=== PATIENT | female | born 1945 | race Caucasian/White ===

== ENCOUNTER 2018-11-07 07:33 | Day surgery (SDC) | payer MEDICARE, MEDICAID ==
[~2018-11-07] VITALS: Ht 162.6 cm; Wt 95.5 kg
[2018-11-07] MEDS ORDERED: ceFAZolin inj. 2,000 MG in normal saline soln 50 ML IV ONE (07:55)
[2018-11-07] MEDS ORDERED: normal saline 1000ml 1,000 ML IV SCH (07:55)
[2018-11-07] MEDS ORDERED: AMLO5TAB PO (08:27)
[2018-11-07] MEDS ORDERED: LAMO25TA5 PO (08:27)
[2018-11-07] MEDS ORDERED: FOLI1TAB16 PO (08:27)
[2018-11-07] MEDS ORDERED: PANT-47 PO (08:27)
[2018-11-07] MEDS ORDERED: ATOR40TA PO (08:27)
[2018-11-07] MEDS ORDERED: SEVE800T8 PO (08:27)
[2018-11-07] MEDS ORDERED: FURO40TA4 PO (08:27)
[2018-11-07] MEDS ORDERED: DIVA-76 PO (08:27)
[2018-11-07] MEDS ORDERED: METO25TA6 PO (08:27)
[2018-11-07] MEDS ORDERED: METO5TAB98 PO (08:27)
[2018-11-07] MEDS ORDERED: FOLI0.8T7 PO (08:27)
[2018-11-07 08:48] VITALS: BP 147/62
[2018-11-07 08:56] LABS: BASOPHILS # (AUTO) 0.1 X10'3 (0-0.2); BASOPHILS % (AUTO) 1.2 % (0-1); EOSINOPHILS # (AUTO) 0.2 X10'3 (0-0.9); EOSINOPHILS % (AUTO) 3.2 % (0-6); HEMATOCRIT 38.9 % (35.0-45.0); HEMOGLOBIN 12.9 g/dl (12.0-16.0); LYMPHOCYTES # (AUTO) 1.6 X10'3 (1.1-4.8); LYMPHOCYTES % (AUTO) 33.5 % (21-51); MEAN CORPUSCULAR HEMOGLOBIN 32.5 PG (27.0-31.0); MEAN CORPUSCULAR HGB CONC 33.1 g/dL (33.0-36.5); MEAN PLATELET VOLUME 8.7 FL (7.4-10.4); MONOCYTES # (AUTO) 0.5 X10'3 (0-0.9); MONOCYTES % (AUTO) 10.8 % (2-12); NEUTROPHILS # (AUTO) 2.4 X10'3 (1.8-7.7); NEUTROPHILS % (AUTO) 51.3 % (42-75); PLATELET COUNT 223 X10'3 (140-440); RED BLOOD COUNT 3.97 X10'6 (4.20-5.60); RED CELL DISTRIBUTION WIDTH 14.3 % (11.5-14.5); WHITE BLOOD COUNT 4.8 X10'3 (4.5-11.0)
[2018-11-07 09:03] LABS: ANION GAP 10 (8-16); BLOOD UREA NITROGEN 29 MG/DL (7-18); BUN/CREATININE RATIO 12.4 (6.6-38.0); CALCIUM 9.2 MG/DL (8.5-10.1); CHLORIDE 103 MMOL/L (99-107); CREATININE 2.34 MG/DL (0.40-0.90); GLUCOSE 99 MG/DL (70-104); POTASSIUM 3.3 MMOL/L (3.5-5.1); SODIUM 143 MMOL/L (135-145); TOTAL CARBON DIOXIDE 29.9 MMOL/L (24-32); eGFR 20 ML/MIN
[2018-11-07] MEDS ORDERED: midazolam 2 mg/2 ml injection ONE ×2 (09:51→10:26)
[2018-11-07] MEDS ORDERED: fentaNYL/PF 50MCG/1 ML 2ML syringe ONE ×3 (09:51→10:40)
[2018-11-07] MEDS ORDERED: heparin 1,000unit/ml 10ml vial 10 ML ONE (09:51)
[2018-11-07] MEDS ORDERED: LIDOcaine 1%/PF 5ML 10 MG/ML VIAL ONE ×2 (09:51→10:43)
[2018-11-07 11:30] VITALS: BP 150/90
[2018-11-07 11:45] VITALS: BP 166/63
[2018-11-07 12:00] VITALS: BP 149/65
[2018-11-07 12:15] VITALS: BP 141/84
[2018-11-07 12:30] VITALS: BP 142/61
== END 2018-11-07 12:50 | disposition home or self-care (01) ==
LOC: SSTAY O 07:33
PROVIDERS: ATTEND Radiology Vascular & Interventional Radiology
DX: T82.49XA Other complication of vascular dialysis catheter, initial encounter (principal); I12.9 Hypertensive chronic kidney disease with stage 1 through stage 4 chronic kidney disease, or unspecified chronic kidney disease; N18.9 Chronic kidney disease, unspecified; E78.5 Hyperlipidemia, unspecified; Y83.8 Other surgical procedures as the cause of abnormal reaction of the patient, or of later complication, without mention of misadventure at the time of the procedure; Z98.51 Tubal ligation status; Z90.49 Acquired absence of other specified parts of digestive tract; Z88.8 Allergy status to other drugs, medicaments and biological substances
CPT/HCPCS: 36415; 36558; 76937; 77001; 80048; 85025; 99152; 99153; C1750; J0690; J1644; J2001; J2250; J3010; J7030; A9270; C1894

== ENCOUNTER 2024-01-13 15:31 | Inpatient (IN) | payer MEDICARE, MEDICAID ==
[~2024-01-13] VITALS: Ht 162.6 cm; Wt 94.9 kg
[~2024-01-13 15:31] MED LIST: ACET500P24 PO; DIPH25CA83 PO; LOSA50TA64 PO; METO5TAB98 PO; OMEP20CA16 PO
[2024-01-13 16:48] LABS: BASOPHILS # (AUTO) 0.1 X10'3 (0-0.2); EOSINOPHILS % (AUTO) 0 % (0-6); LYMPHOCYTES # (AUTO) 0.3 X10'3 (1.1-4.8); MONOCYTES % (AUTO) 0.3 % (2-12)
[2024-01-13 16:50] LABS: BASOPHILS % (AUTO) 0.4 % (0-1); HEMATOCRIT 32.9 % (35.0-45.0); HEMOGLOBIN 10.3 g/dl (12.0-16.0); LYMPHOCYTES % (AUTO) 2.2 % (21-51); MEAN CORPUSCULAR HGB CONC 31.3 g/dL (33.0-36.5); MEAN CORPUSCULAR VOLUME 105.5 FL (78-98); MEAN PLATELET VOLUME 8.3 FL (7.4-10.4); NEUTROPHILS % (AUTO) 97.1 % (42-75); PLATELET COUNT 925 X10'3 (140-440); RED BLOOD COUNT 3.12 X10'6 (4.20-5.60); RED CELL DISTRIBUTION WIDTH 14.9 % (11.5-14.5); WHITE BLOOD COUNT 13.4 X10'3 (4.5-11.0)
[2024-01-13 16:56] LABS: ALANINE AMINOTRANSFERASE 22 U/L (12-78); ALBUMIN 2.1 G/DL (3.4-5.0); ALBUMIN/GLOBULIN RATIO 0.6 (1.1-1.5); ALKALINE PHOSPHATASE 132 IU/L (46-116); ANION GAP 10 (8-16); ASPARTATE AMINO TRANSFERASE 26 U/L (10-37); BILIRUBIN,TOTAL 0.7 MG/DL (0.1-1.0); BLOOD UREA NITROGEN 26 MG/DL (7-18); BUN/CREATININE RATIO 12.1 (10.0-20.0); CALCIUM 7.5 MG/DL (8.5-10.1); CHLORIDE 104 MMOL/L (99-107); CREATININE 2.14 MG/DL (0.40-0.90); GLUCOSE 141 MG/DL (70-104); POTASSIUM 3.1 MMOL/L (3.5-5.1); SODIUM 140 MMOL/L (135-145); TOTAL CARBON DIOXIDE 26.3 MMOL/L (24-32); TOTAL PROTEIN 5.6 G/DL (6.4-8.2); eCRCL 19 ML/MIN; eGFR 22 ML/MIN
[2024-01-13 17:21] LABS: PLATELET ESTIMATE INCREASED; TOTAL CELLS COUNTED 100; TOXIC GRANULATION 2+; TOXIC VACUOLATION FEW
[2024-01-13 17:22] LABS: STOMATOCYTES 1+
[2024-01-13] MEDS: normal saline 1000ml 1,000 ML IV ONE (18:17)
[2024-01-13 18:54] LABS: AMYLASE 8 U/L (25-115); LIPASE 8 U/L (16-77)
[2024-01-13] MEDS: piperacillin/tazo 3.375gm/50ml 50 ML IV STA (18:56)
[2024-01-13] MEDS: ringers solution, lactated 1000ml IV soln IV ONE (19:01)
[2024-01-13] MEDS: ringers solution, lacted 1,000 ML IV ONE (19:02)
[2024-01-13 19:49] LABS: BILIRUBIN,URINE MODERATE (Neg); CLARITY,URINE CLOUDY (Clear); COLOR,URINE AMBER (Yellow); GLUCOSE, URINE NEGATIVE (Neg); KETONES,URINE TRACE mg/dl (Neg); LEUKOCYTE ESTERASE ,URINE MODERATE (Neg); NITRITES, URINE NEGATIVE (Neg); OCCULT BLOOD,URINE SMALL (Neg); PH,URINE 5.5 (4.8-8.0); PROTEIN,URINE 30 mg/dl (Neg)
[2024-01-13 19:52] LABS: UA COLLECTION TYPE FOLEY CATH
[2024-01-13 19:59] LABS: BACTERIA,URINE 2+ /HPF (Neg); WBC,URINE TNTC /HPF (0-4)
[2024-01-13 20:03] LABS: CAL OXALATE CRYSTALS FEW /HPF (NEGATIVE); SQUAMOUS EPITHELIAL CELL,UR MODERATE /LPF (FEW)
[2024-01-13 20:05] LABS: AMORPHOUS URATES 1+
[2024-01-13] MEDS: acetaminophen 1,000mg/100ml IV 100 ML IV ONE (20:08)
[2024-01-13] MEDS ORDERED: ondansetron/PF 4mg/2ml inj IV PRN (20:50)
[2024-01-13] MEDS ORDERED: magnesium hydroxide 30ml (MOM) UD suspension PO PRN (20:50)
[2024-01-13] MEDS ORDERED: HYDROcodone/acetaminophen 5mg/325mg tablet PO PRN (20:50)
[2024-01-13] MEDS ORDERED: potassium Cl 20 mEq SR tablet PO PRN (20:50)
[2024-01-13] MEDS ORDERED: acetaminophen 325mg tablet PO PRN (20:50)
[2024-01-13] MEDS ORDERED: morphine 2 MG/ML inj. syringe IV PRN (20:50)
[2024-01-13] MEDS ORDERED: magnesium 4gm in 100ml NS 100 ML IV PRN (20:50)
[2024-01-13] MEDS ORDERED: potassium Cl 40MEQ/1/2NS 520ml 520 ML IV PRN (20:50)
[2024-01-13] MEDS ORDERED: magnesium 2GM in 50ml NS 50 ML IV PRN (20:50)
[2024-01-13] MEDS: diatr meglu/diatrizoate 30ml oral sol.-(3 dose) bottle PO SCH (21:02)
[2024-01-14] VITALS (8 sets, daily range): BP systolic 86–111; BP diastolic 34–47; PULSE 81–97; RESP 12–26; TEMP 96–98.4; O2SAT 95–100
[2024-01-14] MEDS ORDERED: piperacillin/tazo 3.375gm/50ml 50 ML IV SCH
[2024-01-14] MEDS: loperamide 2mg capsule PO ONE (01:22)
[2024-01-14] MEDS: normal saline 1000ml 1,000 ML IV SCH (01:24)
[2024-01-14] MEDS: morphine 2 MG/ML inj. syringe IV PRN (01:36)
[2024-01-14] MEDS: piperacillin/tazo 3.375gm/50ml 50 ML IV SCH (03:25)
[2024-01-14] MEDS: normal saline 1000ml 1,000 ML IV ONE (03:57)
[2024-01-14 06:32] LABS: BASOPHILS # (AUTO) 0.1 X10'3 (0-0.2); BASOPHILS % (AUTO) 0.6 % (0-1); HEMOGLOBIN 10.9 g/dl (12.0-16.0)
[2024-01-14 06:33] LABS: APTT 23 SECONDS (22-32); INR 1.1 INR
[2024-01-14 06:36] LABS: EOSINOPHILS % (AUTO) 0.2 % (0-6); HEMATOCRIT 34.9 % (35.0-45.0); LYMPHOCYTES # (AUTO) 0.8 X10'3 (1.1-4.8); LYMPHOCYTES % (AUTO) 7.9 % (21-51); MEAN CORPUSCULAR HEMOGLOBIN 34.3 PG (27.0-31.0); MEAN CORPUSCULAR HGB CONC 31.1 g/dL (33.0-36.5); MEAN CORPUSCULAR VOLUME 110.3 FL (78-98); MEAN PLATELET VOLUME 8.3 FL (7.4-10.4); MONOCYTES % (AUTO) 0.4 % (2-12); NEUTROPHILS # (AUTO) 9.7 X10'3 (1.8-7.7); NEUTROPHILS % (AUTO) 90.9 % (42-75); PLATELET COUNT 791 X10'3 (140-440); RED BLOOD COUNT 3.17 X10'6 (4.20-5.60); RED CELL DISTRIBUTION WIDTH 15.5 % (11.5-14.5); WHITE BLOOD COUNT 10.7 X10'3 (4.5-11.0)
[2024-01-14 06:57] LABS: C DIFF ANTIGEN POSITIVE (NEGATIVE); C DIFF SPECIMEN=DIARRHEA? ACCEPTABLE; C DIFFICILE TOXINS A&B POSITIVE (Neg)
[2024-01-14 06:59] LABS: ALANINE AMINOTRANSFERASE 26 U/L (12-78); ALBUMIN 1.9 G/DL (3.4-5.0); ALBUMIN/GLOBULIN RATIO 0.5 (1.1-1.5); ALKALINE PHOSPHATASE 126 IU/L (46-116); ANION GAP 13 (8-16); ASPARTATE AMINO TRANSFERASE 36 U/L (10-37); BILIRUBIN,TOTAL 0.7 MG/DL (0.1-1.0); BLOOD UREA NITROGEN 27 MG/DL (7-18); BUN/CREATININE RATIO 11.8 (10.0-20.0); CALCIUM 7.4 MG/DL (8.5-10.1); CHLORIDE 105 MMOL/L (99-107); CREATININE 2.28 MG/DL (0.40-0.90); FERRITIN 172 NG/ML (8-252); GLUCOSE 104 MG/DL (70-104); MAGNESIUM 1.3 MG/DL (1.5-2.4); PHOSPHORUS 3.1 MG/DL (2.3-4.5); POTASSIUM 3.4 MMOL/L (3.5-5.1); SODIUM 141 MMOL/L (135-145); TOTAL CARBON DIOXIDE 23.1 MMOL/L (24-32); TOTAL PROTEIN 5.4 G/DL (6.4-8.2); eCRCL 18 ML/MIN; eGFR 21 ML/MIN
[2024-01-14 07:23] LABS: PLATELET ESTIMATE INCREASED; TOTAL CELLS COUNTED 100
[2024-01-14 07:24] LABS: GIANT PLATELET FEW; LARGE PLATELETS FEW
[2024-01-14 07:27] LABS: TOXIC GRANULATION 2+
[2024-01-14 07:28] LABS: POLYCHROMASIA FEW; STOMATOCYTES FEW
[2024-01-14 07:31] LABS: SCHISTOCYTES FEW
[2024-01-14 07:56] LABS: BANDS% (MANUAL) 2 % (0-10); LYMPHOCYTES % (MANUAL) 8 % (21-51); NEUTROPHILS % (MANUAL) 90 % (42-75)
[2024-01-14] MEDS ORDERED: loperamide 2mg capsule PO PRN (08:00)
[2024-01-14] MEDS: losartan 50mg tablet PO SCH (08:00)
[2024-01-14] MEDS: K and/or MAG REPLACEMENT MC SCH (08:00)
[2024-01-14] MEDS ORDERED: docusate sod 100mg capsule PO SCH (08:00)
[2024-01-14 08:48] LABS: % IRON SATURATION 6 % (11-46); IRON 8 UG/DL (49-151); TOTAL IRON BINDING CAPACITY 128 UG/DL (259-388)
[2024-01-14] MEDS: potassium Cl 20 mEq SR tablet PO PRN (09:09)
[2024-01-14] MEDS: HYDROcodone/acetaminophen 10/325mg tab PO PRN (09:09)
[2024-01-14] MEDS: magnesium Cl slow-release 64mg tablet PO PRN (09:09)
[2024-01-14] MEDS: VANCOMYCIN 125 MG/5 ML oral SOLN.RECON 5mL UD syringe (FIRVANQ) PO SCH (09:10)
[2024-01-14] MEDS: heparin, porcine 5000 units/ml vial SQ SCH (09:10)
[2024-01-14] MEDS ORDERED: normal saline 500ml IV soln 500 ML IV SCH (11:45)
[2024-01-14] MEDS: normal saline 500ml IV soln 500 ML IV ONE (12:11)
[2024-01-14] MEDS: MULTIVIT-MIN/FERROUS GLUCONATE 9 MG/15 ML LIQUID PO SCH (17:45)
[2024-01-15 02:00] VITALS: BP 98/34; PULSE 85; RESP 14; TEMP 98.6; O2SAT 96
[2024-01-15 07:00] VITALS: BP 95/48; PULSE 76; RESP 17; TEMP 96; O2SAT 94
[2024-01-15 10:50] LABS: EOSINOPHILS # (AUTO) 0.1 X10'3 (0-0.9); LYMPHOCYTES # (AUTO) 0.4 X10'3 (1.1-4.8); MEAN PLATELET VOLUME 8.7 FL (7.4-10.4); MONOCYTES % (AUTO) 0.6 % (2-12); RED CELL DISTRIBUTION WIDTH 15.6 % (11.5-14.5); WHITE BLOOD COUNT 3.5 X10'3 (4.5-11.0)
[2024-01-15 10:53] LABS: BASOPHILS % (AUTO) 1.1 % (0-1); EOSINOPHILS % (AUTO) 2.8 % (0-6); HEMATOCRIT 29.4 % (35.0-45.0); HEMOGLOBIN 9.2 g/dl (12.0-16.0); LYMPHOCYTES % (AUTO) 12.1 % (21-51); MEAN CORPUSCULAR HEMOGLOBIN 33.4 PG (27.0-31.0); MEAN CORPUSCULAR HGB CONC 31.1 g/dL (33.0-36.5); MEAN CORPUSCULAR VOLUME 107.4 FL (78-98); NEUTROPHILS % (AUTO) 83.4 % (42-75); PLATELET COUNT 903 X10'3 (140-440); RED BLOOD COUNT 2.74 X10'6 (4.20-5.60)
[2024-01-15 11:13] LABS: ALANINE AMINOTRANSFERASE 23 U/L (12-78); ALBUMIN 1.5 G/DL (3.4-5.0); ALBUMIN/GLOBULIN RATIO 0.5 (1.1-1.5); ALKALINE PHOSPHATASE 134 IU/L (46-116); ANION GAP 10 (8-16); ASPARTATE AMINO TRANSFERASE 26 U/L (10-37); BILIRUBIN,TOTAL 0.4 MG/DL (0.1-1.0); BLOOD UREA NITROGEN 32 MG/DL (7-18); BUN/CREATININE RATIO 15.8 (10.0-20.0); CALCIUM 7.2 MG/DL (8.5-10.1); CHLORIDE 107 MMOL/L (99-107); CREATININE 2.03 MG/DL (0.40-0.90); GLUCOSE 95 MG/DL (70-104); MAGNESIUM 1.6 MG/DL (1.5-2.4); PHOSPHORUS 3.3 MG/DL (2.3-4.5); POTASSIUM 3.9 MMOL/L (3.5-5.1); SODIUM 138 MMOL/L (135-145); TOTAL CARBON DIOXIDE 21.1 MMOL/L (24-32); TOTAL PROTEIN 4.8 G/DL (6.4-8.2); eCRCL 20 ML/MIN; eGFR 24 ML/MIN
[2024-01-15 11:31] LABS: APTT 34 SECONDS (22-32); INR 1.2 INR; PROTHROMBIN TIME 12.2 SECONDS (9.0-12.0)
[2024-01-15 12:00] VITALS: BP 104/52; PULSE 75; RESP 16; TEMP 98.2; O2SAT 92
[2024-01-15] MEDS: simethicone 80mg chew tab PO PRN (14:24)
[2024-01-15 18:00] VITALS: BP 106/44; PULSE 97; RESP 17; TEMP 97; O2SAT 99
[2024-01-15 22:00] VITALS: BP 110/53; PULSE 96; RESP 22; TEMP 97.2; O2SAT 94
[2024-01-16 02:00] VITALS: BP 96/50; PULSE 72; RESP 16; TEMP 97.2; O2SAT 96
[2024-01-16 04:13] LABS: EOSINOPHILS # (AUTO) 0.1 X10'3 (0-0.9); LYMPHOCYTES # (AUTO) 0.4 X10'3 (1.1-4.8); MEAN PLATELET VOLUME 8.5 FL (7.4-10.4); MONOCYTES % (AUTO) 0.5 % (2-12); NEUTROPHILS # (AUTO) 2.3 X10'3 (1.8-7.7); WHITE BLOOD COUNT 2.9 X10'3 (4.5-11.0)
[2024-01-16 04:14] LABS: BASOPHILS % (AUTO) 0.7 % (0-1); EOSINOPHILS % (AUTO) 4.3 % (0-6); HEMATOCRIT 28.7 % (35.0-45.0); LYMPHOCYTES % (AUTO) 15.2 % (21-51); MEAN CORPUSCULAR HEMOGLOBIN 33.2 PG (27.0-31.0); MEAN CORPUSCULAR HGB CONC 31.2 g/dL (33.0-36.5); MEAN CORPUSCULAR VOLUME 106.6 FL (78-98); NEUTROPHILS % (AUTO) 79.3 % (42-75); RED CELL DISTRIBUTION WIDTH 15.7 % (11.5-14.5)
[2024-01-16 04:19] LABS: PLATELET COUNT 1048 X10'3 (140-440)
[2024-01-16 04:21] LABS: APTT 33 SECONDS (22-32); INR 1.1 INR; PROTHROMBIN TIME 11.9 SECONDS (9.0-12.0)
[2024-01-16 04:30] LABS: ALANINE AMINOTRANSFERASE 23 U/L (12-78); ALBUMIN 1.5 G/DL (3.4-5.0); ALBUMIN/GLOBULIN RATIO 0.5 (1.1-1.5); ALKALINE PHOSPHATASE 154 IU/L (46-116); ANION GAP 11 (8-16); ASPARTATE AMINO TRANSFERASE 24 U/L (10-37); BILIRUBIN,TOTAL 0.2 MG/DL (0.1-1.0); BLOOD UREA NITROGEN 31 MG/DL (7-18); BUN/CREATININE RATIO 18.9 (10.0-20.0); CALCIUM 7.7 MG/DL (8.5-10.1); CHLORIDE 108 MMOL/L (99-107); CREATININE 1.64 MG/DL (0.40-0.90); GLUCOSE 92 MG/DL (70-104); MAGNESIUM 1.4 MG/DL (1.5-2.4); PHOSPHORUS 3.4 MG/DL (2.3-4.5); POTASSIUM 3.7 MMOL/L (3.5-5.1); SODIUM 137 MMOL/L (135-145); TOTAL CARBON DIOXIDE 18.4 MMOL/L (24-32); TOTAL PROTEIN 4.7 G/DL (6.4-8.2); eCRCL 25 ML/MIN; eGFR 30 ML/MIN
[2024-01-16 04:59] LABS: GIANT PLATELET FEW; LARGE PLATELETS FEW; PLATELET ESTIMATE INCREASED; TOTAL CELLS COUNTED 100; TOXIC GRANULATION 1+
[2024-01-16 05:00] LABS: ANISOCYTOSIS FEW; TOXIC VACUOLATION FEW
[2024-01-16 06:00] VITALS: BP 106/48; PULSE 77; RESP 2; TEMP 97.2; O2SAT 95
[2024-01-16 11:00] VITALS: BP 98/47; PULSE 80; RESP 17; TEMP 97.8; O2SAT 95
[2024-01-16] MEDS: lactose-reduced food (Ensure Enlive) - 237ml bottle PO SCH (13:12)
[2024-01-16 15:00] VITALS: BP 126/49; PULSE 90; RESP 18; TEMP 98.4; O2SAT 95
[2024-01-16 18:00] VITALS: BP 149/63; PULSE 78; RESP 18; TEMP 97.8; O2SAT 98
[2024-01-16] MEDS: mag hydrox/Alum hydrox/simeth 30ml oral suspension PO PRN (19:22)
[2024-01-16 22:00] VITALS: BP 115/46; PULSE 85; RESP 16; TEMP 98; O2SAT 96
[2024-01-17 02:00] VITALS: BP 114/45; PULSE 75; RESP 15; TEMP 97.4; O2SAT 96
[2024-01-17 06:00] VITALS: BP 137/59; PULSE 85; RESP 20; TEMP 98.4; O2SAT 96
[2024-01-17 06:48] LABS: BASOPHILS % (AUTO) 0.5 % (0-1); EOSINOPHILS # (AUTO) 0.1 X10'3 (0-0.9); HEMOGLOBIN 8.6 g/dl (12.0-16.0); WHITE BLOOD COUNT 2.4 X10'3 (4.5-11.0)
[2024-01-17 06:51] LABS: EOSINOPHILS % (AUTO) 5.6 % (0-6); HEMATOCRIT 27.5 % (35.0-45.0); INR 1.1 INR; LYMPHOCYTES # (AUTO) 0.4 X10'3 (1.1-4.8); MEAN CORPUSCULAR HGB CONC 31.2 g/dL (33.0-36.5); MEAN CORPUSCULAR VOLUME 108.7 FL (78-98); MEAN PLATELET VOLUME 8.2 FL (7.4-10.4); MONOCYTES % (AUTO) 0.7 % (2-12); NEUTROPHILS # (AUTO) 1.8 X10'3 (1.8-7.7); NEUTROPHILS % (AUTO) 74.2 % (42-75); PROTHROMBIN TIME 11.5 SECONDS (9.0-12.0); RED BLOOD COUNT 2.53 X10'6 (4.20-5.60); RED CELL DISTRIBUTION WIDTH 16.2 % (11.5-14.5)
[2024-01-17 07:05] LABS: ALANINE AMINOTRANSFERASE 23 U/L (12-78); ALBUMIN 1.4 G/DL (3.4-5.0); ALBUMIN/GLOBULIN RATIO 0.5 (1.1-1.5); ALKALINE PHOSPHATASE 189 IU/L (46-116); ANION GAP 10 (8-16); ASPARTATE AMINO TRANSFERASE 23 U/L (10-37); BILIRUBIN,TOTAL 0.2 MG/DL (0.1-1.0); BLOOD UREA NITROGEN 27 MG/DL (7-18); BUN/CREATININE RATIO 23.1 (10.0-20.0); CHLORIDE 112 MMOL/L (99-107); CREATININE 1.17 MG/DL (0.40-0.90); GLUCOSE 93 MG/DL (70-104); MAGNESIUM 1.9 MG/DL (1.5-2.4); PHOSPHORUS 3.4 MG/DL (2.3-4.5); POTASSIUM 3.6 MMOL/L (3.5-5.1); SODIUM 140 MMOL/L (135-145); TOTAL CARBON DIOXIDE 18.5 MMOL/L (24-32); TOTAL PROTEIN 4.3 G/DL (6.4-8.2); eCRCL 35 ML/MIN; eGFR 45 ML/MIN
[2024-01-17 07:13] LABS: PLATELET COUNT 1021 X10'3 (140-440)
[2024-01-17] MEDS: pantoprazole 40mg Tablet.DR PO SCH (08:00)
[2024-01-17 11:00] VITALS: BP 144/59; PULSE 91; RESP 19; TEMP 98.2; O2SAT 97
[2024-01-17] MEDS: diatr meglu/diatrizoate 30ml oral sol.-(3 dose) bottle PO SCH (12:01)
[2024-01-17 15:00] VITALS: BP 149/98; PULSE 89; RESP 22; TEMP 97.8; O2SAT 93
[2024-01-17] MEDS: acetaminophen 325mg tablet PO PRN (17:12)
[2024-01-17 18:00] VITALS: BP 139/55; PULSE 85; RESP 22; TEMP 98.7; O2SAT 95
[2024-01-17 22:00] VITALS: BP 119/40; PULSE 66; RESP 18; TEMP 98.6; O2SAT 97
[2024-01-18 02:13] LABS: BASOPHILS % (AUTO) 0.7 % (0-1); EOSINOPHILS # (AUTO) 0.1 X10'3 (0-0.9); EOSINOPHILS % (AUTO) 4.4 % (0-6); HEMATOCRIT 29.3 % (35.0-45.0); HEMOGLOBIN 9.3 g/dl (12.0-16.0); LYMPHOCYTES # (AUTO) 0.6 X10'3 (1.1-4.8); LYMPHOCYTES % (AUTO) 19.3 % (21-51); MEAN CORPUSCULAR HEMOGLOBIN 33.6 PG (27.0-31.0); MEAN CORPUSCULAR HGB CONC 31.9 g/dL (33.0-36.5); MEAN CORPUSCULAR VOLUME 105.5 FL (78-98); MEAN PLATELET VOLUME 7.8 FL (7.4-10.4); MONOCYTES % (AUTO) 0.6 % (2-12); NEUTROPHILS # (AUTO) 2.4 X10'3 (1.8-7.7); RED BLOOD COUNT 2.78 X10'6 (4.20-5.60); RED CELL DISTRIBUTION WIDTH 15.8 % (11.5-14.5); WHITE BLOOD COUNT 3.3 X10'3 (4.5-11.0)
[2024-01-18 02:27] LABS: PLATELET COUNT 1128 X10'3 (140-440)
[2024-01-18 02:40] LABS: INR 1.1 INR; PROTHROMBIN TIME 11.8 SECONDS (9.0-12.0)
[2024-01-18 02:50] LABS: ALANINE AMINOTRANSFERASE 27 U/L (12-78); ALBUMIN 1.5 G/DL (3.4-5.0); ALBUMIN/GLOBULIN RATIO 0.5 (1.1-1.5); ALKALINE PHOSPHATASE 210 IU/L (46-116); ANION GAP 10 (8-16); ASPARTATE AMINO TRANSFERASE 22 U/L (10-37); BILIRUBIN,TOTAL 0.2 MG/DL (0.1-1.0); BLOOD UREA NITROGEN 21 MG/DL (7-18); BUN/CREATININE RATIO 17.2 (10.0-20.0); CALCIUM 8.3 MG/DL (8.5-10.1); CHLORIDE 111 MMOL/L (99-107); CREATININE 1.22 MG/DL (0.40-0.90); GLUCOSE 104 MG/DL (70-104); MAGNESIUM 1.7 MG/DL (1.5-2.4); PHOSPHORUS 3.7 MG/DL (2.3-4.5); POTASSIUM 3.8 MMOL/L (3.5-5.1); SODIUM 140 MMOL/L (135-145); TOTAL CARBON DIOXIDE 19.1 MMOL/L (24-32); TOTAL PROTEIN 4.5 G/DL (6.4-8.2); eCRCL 34 ML/MIN; eGFR 43 ML/MIN
[2024-01-18 03:59] VITALS: BP 114/49; PULSE 89; RESP 21; TEMP 99.1; O2SAT 99
[2024-01-18] MEDS: heparin, porcine 5000 units/ml vial SQ SCH (04:21)
[2024-01-18 06:00] VITALS: BP 135/57; PULSE 96; RESP 22; TEMP 99.3; O2SAT 92
[2024-01-18 08:00] VITALS: RESP 22; O2SAT 92
[2024-01-18 11:00] VITALS: BP 129/52; PULSE 84; RESP 20; TEMP 99.5; O2SAT 96
== END 2024-01-18 14:12 | DRG 871 ==
LOC: ER 15:31 → ED HOLD 20:52 → PCU 3S 01-14 01:12
PROVIDERS: ADMIT Internal Medicine Critical Care Medicine; ATTEND Family Medicine
DX: A41.9 Sepsis, unspecified organism (principal); K65.0 Generalized (acute) peritonitis; N17.0 Acute kidney failure with tubular necrosis; A04.72 Enterocolitis due to Clostridium difficile, not specified as recurrent; M48.56XA Collapsed vertebra, not elsewhere classified, lumbar region, initial encounter for fracture; J90 Pleural effusion, not elsewhere classified; N39.0 Urinary tract infection, site not specified; E87.6 Hypokalemia; D75.839 Thrombocytosis, unspecified; G31.84 Mild cognitive impairment of uncertain or unknown etiology; D53.9 Nutritional anemia, unspecified; E83.51 Hypocalcemia; E88.09 Other disorders of plasma-protein metabolism, not elsewhere classified; E83.42 Hypomagnesemia; I10 Essential (primary) hypertension; Z96.653 Presence of artificial knee joint, bilateral; Z88.6 Allergy status to analgesic agent; Z88.8 Allergy status to other drugs, medicaments and biological substances; Z79.899 Other long term (current) drug therapy; Z90.49 Acquired absence of other specified parts of digestive tract; Z90.710 Acquired absence of both cervix and uterus
CPT/HCPCS: 36415; 71045; 74176; 76882; 80053; 81001; 82150; 82607; 82728; 83540; 83550; 83605; 83690; 83735; 83880; 84100; 84145; 84484; 85007; 85025; 85610; 85730; 87040; 87077; 87081; 87088; 87186; 87324; 87449; 93005; 93925; 93931; 93970; 93971; 96365; 96367; 97161; 97530; 99285; A6250; A6258; C1758; G0378; J0131; J1644; J2270; J2543; J7030; J7040; J7120; J7121; Q9963